=== PATIENT | female | born 1995 | race Asian ===

== ENCOUNTER 2020-03-11 18:07 | Emergency (ER) | payer BC ==
[~2020-03-11] VITALS: Ht 162.6 cm; Wt 59.0 kg
--- NOTE | 2020-03-11 18:40 | Emergency Department Note ---
History of Present Illnes History of Present Illness Chief Complaint: General Medicine Complaints History of Present Illness This is a 24 year old female with lower back pain radiating down both legs and to pelvic area. denies urinary symptoms, denies n/v. pain is worse with movement. denies vaginal discharge, . Historian: Patient Arrival Mode: Car Onset (how long ago): day(s) (2) Location: lower back Quality: pain Radiation: Reports extremity (legs), Reports abdomen (lower pelvis) Severity: moderate Duration (how long): day(s) (2) Timing of current episode: constant Progression: worsening Chronicity: new Context: Denies recent illness, Denies recent surgery, Denies trauma/injury Relieving factors: none, other (staying still) Exacerbating factors: movement Associated symptoms: Reports denies other symptoms Past Medical/Family History Physician Review I have reviewed the patient's past medical and family history. Any updates have been documented here. Past Medical History Recent Fever: No Clinical Suspicion of Infectio: No New/Unexplained Change in Ment: No Past Medical History: Anxiety Past Surgical History: None Social History Smoking Cessation: Never Smoker Counseling Performed: No Alcohol Use: Occasional Any Illegal Drug Use: No Other Any Pre-Existing Lines (PICC,: No Review of Systems Review of Systems Constitutional: Reports no symptoms EENTM: Reports no symptoms Cardiovascular: Reports no symptoms Respiratory: Reports no symptoms Gastrointestinal: Reports no symptoms Genitourinary: Reports no symptoms Musculoskeletal: Reports as per HPI Integumentary: Reports no symptoms Neurological: Reports no symptoms Psychological: Reports no symptoms Endocrine: Reports no symptoms Hematological/Lymphatic: Reports no symptoms Physical Exam Related Data Allergies: Coded Allergies: No Known Allergies (Unverified , 03/11/20) Triage Vital Signs Vital Signs Date Time Temp Pulse Resp B/P (MAP) Pulse Ox O2 Delivery O2 Flow Rate FiO2 03/11/20 18:11 100.0 78 18 147/ 100 Room Air Vital signs reviewed: Yes Physical Exam CONSTITUTIONAL Constitutional: Present well-developed, Present well-nourished HENT HENT: Present normocephalic, Present atraumatic, Present oropharynx clear/moist, Present nose normal HENT L/R: Present left ext ear normal, Present right ext ear normal EYES Eyes: Reports PERRL, Reports conjunctivae normal NECK Neck: Present ROM normal PULMONARY Pulmonary: Present effort normal, Present breath sounds normal CARDIOVASCULAR Cardiovascular: Present regular rhythm, Present heart sounds normal, Present capillary refill normal, Present normal rate GASTROINTESTINAL Abdominal: Present soft, Present nontender, Present bowel sounds normal GENITOURINARY Genitourinary: Present exam deferred SKIN Skin: Present warm, Present dry MUSCULOSKELETAL Musculoskeletal: Present tenderness (soft tissue lumbar back, reproduces pt's back pain) NEUROLOGICAL Neurological: Present alert, Present oriented x 3, Present no gross motor or sensory deficits PSYCHOLOGICAL Psychological: Present mood/affect normal, Present judgement normal Results Laboratory Lab results reviewed: Yes Laboratory comments Laboratory Tests Test 03/11/20 18:40 Urine Color Yellow (YELLOW) Urine Clarity Clear (CLEAR) Urine pH 7 (5 - 7) Urine Specific [place] 1.010 (1.010-1.025) Urine Protein Negative (NEGATIVE) Urine Glucose (UA) Negative (NEGATIVE) Urine Ketones Negative (NEGATIVE) Urine Blood Negative (NEGATIVE) Urine Nitrite Negative (NEGATIVE) Urine Bilirubin Negative (NEGATIVE) Urine Urobilinogen 0.2 mg/dL (0.2 - 1) Urine Leukocyte Esterase Trace (NEGATIVE) Urine RBC None /HPF (0-5) Urine WBC None /HPF (0-5) Urine Epithelial Cells Moderate /LPF (NONE) Urine Bacteria Moderate /HPF (NONE) Urine Test Negative (NEGATIVE) Assessment & Plan Medical Decision Making MDM pt with lower back pain ua, preg test ordered to eval for uti, toradol 60 mg im ordered pt discharged with prescriptions tramadol 50 mg po q 6 hours prn pain, flexeril 10 mg po q 8 hours prn muscle spasm, naproxen 500 mg po q 12 hours prn pain Assessment & Plan Final Impression: (1) Low back pain (2) Sciatica Depart Disposition: HOME, SELF-CARE Last Vital Signs Date Time Temp Pulse Resp B/P (MAP) Pulse Ox O2 Delivery O2 Flow Rate FiO2 03/11/20 18:11 100.0 78 18 147/ 100 Room Air AMMON TILLEY MD Mar 11, 2020 18:40
[2020-03-11 18:52] LABS: CLARITY,URINE CLEAR (CLEAR); COLOR,URINE YELLOW (YELLOW)
[2020-03-11 18:53] LABS: BILIRUBIN,URINE NEGATIVE (NEGATIVE); KETONES,URINE NEGATIVE (NEGATIVE); LEUKOCYTE ESTERASE ,URINE TRACE (NEGATIVE); NITRITE,URINE NEGATIVE (NEGATIVE); PREGNANCY TEST, URINE NEGATIVE (NEGATIVE); PROTEIN,URINE DIPSTICK NEGATIVE (NEGATIVE); URINE UROBILINOGEN 0.2 mg/dL (0.2 - 1)
[2020-03-11 19:04] LABS: BACTERIA,URINE MODERATE /HPF; EPITHELIAL CELLS,URINE MODERATE /LPF
[2020-03-11] MEDS ORDERED: KETOROLAC TROMETHAMINE 60 MG/2 ML VIAL IM ONE (19:15)
[2020-03-11 19:56] VITALS: BP 119/91
== END 2020-03-11 20:00 | disposition home or self-care (01) ==
LOC: ER 18:17
DX: M54.42 Lumbago with sciatica, left side (principal); M54.41 Lumbago with sciatica, right side; F41.9 Anxiety disorder, unspecified
CPT/HCPCS: 81001; 81025; 99283; J1885

== ENCOUNTER 2024-01-11 14:52 | Emergency (ER) | payer BC ==
[~2024-01-11] VITALS: Ht 162.6 cm; Wt 62.2 kg
[2024-01-11] MEDS ORDERED: PRENATAL + DHA1 EAC1 (18:18)
[2024-01-11 18:19] VITALS: PULSE 71; RESP 16; TEMP 98.4; O2SAT 99
== END 2024-01-11 19:02 | disposition home or self-care (01) ==
LOC: FSED 15:06
DX: O20.0 Threatened abortion (principal); R10.30 Lower abdominal pain, unspecified
CPT/HCPCS: 36415; 76801; 76830; 80053; 81003; 81025; 84702; 85025; 86900; 99284